=== PATIENT | female | born 1985 | race Caucasian/White ===

== ENCOUNTER 2021-03-04 13:09 | Inpatient (IN) | payer MEDICAID, SELFPAY ==
[~2021-03-04] VITALS: Ht 160 cm; Wt 119.7 kg
[2021-03-04 13:19] VITALS: BP_SYST 137
--- NOTE | 2021-03-04 13:19 | NUR ---
Patient to ER bed 4 to gown for evaluation. Side rails up.
--- NOTE | 2021-03-04 13:20 | NUR ---
Pt walked in to ER with c/o left breast bump and pain 07/05 x1 week. Reports going to urgent care today and being sent here. V/S stable, pt denies any fevers.
--- NOTE | 2021-03-04 13:25 | NUR ---
ER Dr. Nevarez at bedside examining patient.
[2021-03-04] MEDS ORDERED: ONDANSETRON HCL 4 MG/2 ML VIAL IVP ONE ×2 (13:30→20:50)
[2021-03-04] MEDS ORDERED: PIPERACILLIN/TAZO 3.375 GM in NS 50 ML IV ONE (13:30)
[2021-03-04] MEDS ORDERED: MORPHINE 4 MG INJ. 4 MG/ML VIAL IVP ONE (13:30)
[2021-03-04] MEDS ORDERED: NACL 0.9% 1,000 ML IV ONE (13:30)
[2021-03-04] MEDS ORDERED: PIPERACILLIN/TAZOBACTAM 3.375 GM/VIAL (ZOSYN) IV ONE (13:36)
--- NOTE | 2021-03-04 13:45 | NUR ---
# 20 gauge angiocath placed to RFA. Use of asceptic technique. Opsite placed over site. Blood return noted. Flushed with 10 cc of normal saline. No evidence of infiltration noted. Patient tolerated well.
--- NOTE | 2021-03-04 13:50 | NUR ---
Admit orders recevied from Dr. Urban, pt to go to med-surg. Covid results pending for bed placement.
--- NOTE | 2021-03-04 14:32 | NUR ---
Radiology at bedside for breast ultra sound.
[2021-03-04 14:37] LABS: BASOPHILS % (AUTO) 0.4 % (0.0-2.0); EOSINOPHILS # (AUTO) 0.1 K/uL (0.0-0.4); EOSINOPHILS % (AUTO) 1.6 % (0.0-4.0); HEMATOCRIT 33.5 % (36-48); HEMOGLOBIN 10.6 g/dL (12.0-16.0); LYMPHOCYTES # (AUTO) 2.3 K/uL (1.0-5.5); MEAN CORPUSCULAR HEMOGLOBIN 22 pg (27-31); MEAN CORPUSCULAR HGB CONC 32 % (32-36); MEAN CORPUSCULAR VOLUME 70 fL (79.0-98.0); MONOCYTES # (AUTO) 0.5 K/uL (0.0-1.0); MONOCYTES % (AUTO) 6.5 % (1.7-9.3); NEUTROPHILS # (AUTO) 5.3 K/uL (1.8-7.7); NEUTROPHILS % (AUTO) 63.5 % (40.0-70.0); PLATELET COUNT (AUTO) 381 K/uL (130-430); RED BLOOD CELL COUNT(AUTO) 4.78 MIL/uL (4.2-6.2); RED CELL DISTRIBUTION WIDTH 16.7 % (9.0-15.0); WHITE BLOOD COUNT (AUTO) 8.3 K/uL (4.8-10.8)
[2021-03-04] MEDS ORDERED: ONDANSETRON HCL 4 MG/2 ML VIAL IVP PRN (14:45)
[2021-03-04] MEDS ORDERED: MORPHINE 2 MG/ML INJ. SYRINGE IVP PRN (14:45)
[2021-03-04] MEDS ORDERED: ACETAMINOPHEN 325 MG TABLET PO PRN (14:45)
[2021-03-04] MEDS ORDERED: METOCLOPRAMIDE HCL 10 MG/2 ML VIAL IVP PRN (14:45)
[2021-03-04 14:46] LABS: CALCIUM 8.8 mg/dL (8.4-11.0); CREATININE 0.66 mg/dL (0.55-1.30); POTASSIUM 3.6 mmol/L (3.5-5.1)
[2021-03-04] MEDS ORDERED: HYDR25TA4 PO (14:50)
[2021-03-04 14:52] LABS: ALBUMIN 3.4 g/dL (3.4-4.8); TOTAL BILIRUBIN 0.3 mg/dL (0.0-1.0)
--- NOTE | 2021-03-04 15:00 | NUR ---
Med rec and belongings list completed. Code status placed on chart. notified of pt's admission
--- NOTE | 2021-03-04 16:38 | NUR ---
Patient will be admitted to care of Dr. Urban. Admitted to med-surg unit. Will go to room 102B. Belongings list completed. Complete and up to date summary report printed. SBAR report to be given at bedside with opportunity for questions.
[2021-03-04 16:46] VITALS: BP_SYST 143
--- NOTE | 2021-03-04 16:46 | NUR ---
ADMISSION NOTE Received patient from ER via efraín, received report from Britta MINOR. Patient admitted with diagnosis of Left Breast Abscess. Patient oriented to hospital routine, call light, toileting and safety-patient verbalized understanding.
--- NOTE | 2021-03-04 17:19 | NUR ---
CONSULT SURGERY LEFT BREAST ABSCESS DR TELLEZ [phone] S/W BRENNEN EXCHANGE
--- NOTE | 2021-03-04 17:39 | NUR ---
Paged Dr. Curry COTO had called to see if patient had eaten dinner yet, she has not started dinner yet, the patient has not eaten since last night - calling Dr. Zapien back to inform him - also informed the patient to not eat yet per Surgeon, patient verbalized understanding.
[2021-03-04] MEDS: PIPERACILLIN/TAZO 3.375/DEX-IS 50 ML IV SCH ×3 (18:04→23:33)
--- NOTE | 2021-03-04 18:38 | NUR ---
Dr. Zapien rounds informed consent for left breast Incision and drainage - answered the patient's questions about the procedure tonight - will follow up with consent and surgery prep.
[2021-03-04] MEDS ORDERED: VANCOMYCIN HCL 1,250 MG in NS 250 ML IV SCH (19:00)
--- NOTE | 2021-03-04 19:29 | NUR ---
Closing note patient prepared for surgery - made NOC shift nurse aware that MRSA screen for pre-op and UA and urine HCG still need to be collected - otherwise all other needs met for the patient, report given to Dallas MINOR.
[2021-03-04 20:00] VITALS: BP_SYST 120
--- NOTE | 2021-03-04 20:30 | NUR ---
RECEIVED BY OR Patient received by OR at this time via bed.
[2021-03-04 20:46] LABS: BILIRUBIN,URINE NEGATIVE (NEGATIVE); BLOOD, URINE 3+ (NEGATIVE); COLOR,URINE RED (YELLOW); GLUCOSE,URINE NEGATIVE (NEGATIVE); HCG,QUAL RESULT NEGATIVE (NEGATIVE); KETONES,URINE TRACE (NEGATIVE); LEUKOCYTE ESTERASE ,URINE 1+ (NEGATIVE); NITRITE, URINE POSITIVE (NEGATIVE); PH,URINE 5.5 (5.0-8.0); PROTEIN URINE 3+ (NEGATIVE)
[2021-03-04] MEDS ORDERED: SEVOFLURANE 15 MIN GAS INH ONE (20:50)
[2021-03-04] MEDS ORDERED: SUCCINYLCHOLINE CHLORIDE 20 MG/ML(QUELICIN) IVP ONE (20:50)
[2021-03-04] MEDS ORDERED: DEXAMETHASONE SOD PHOSPHATE 4 MG/ML VIAL IVP ONE (20:50)
[2021-03-04] MEDS ORDERED: BUPIVACAINE /PF 0.25% 30 ML VIAL INJ ONE (20:50)
[2021-03-04] MEDS ORDERED: PROPOFOL 200MG/ 20ML VIAL (DIPRIVAN) IV ONE (20:50)
[2021-03-04] MEDS ORDERED: METOCLOPRAMIDE HCL 10 MG/2 ML VIAL IVP ONE (20:50)
[2021-03-04] MEDS ORDERED: KETOROLAC TROMETHAMINE 30 MG VIAL IVP ONE (20:50)
[2021-03-04] MEDS ORDERED: NS IRRIG SOLN 1000 ML IR ONE (20:50)
[2021-03-04] MEDS ORDERED: LR 1,000 ML IV.SOLN IV ONE (20:50)
[2021-03-04] MEDS ORDERED: MIDAZOLAM HCL 5 MG/5 ML VIAL IVP ONE (20:50)
[2021-03-04] MEDS ORDERED: fentaNYL CITRATE/PF 100 MCG/2 ML AMP IVP ONE (20:50)
[2021-03-04 21:06] LABS: CLARITY/URINE BLOODY (CLEAR)
[2021-03-04 21:18] LABS: BACTERIA,URINE None Seen /HPF (None Seen); RBC,URINE >100 /HPF (0-3); TRICHOMONAS,URINE None Seen /HPF (None Seen); YEAST,URINE None Seen /HPF (None Seen)
[2021-03-04] MEDS ORDERED: MEPERIDINE HCL/PF 25 MG/ML DISP.SYRIN IVP PRN (22:15)
[2021-03-04] MEDS ORDERED: HYDROmorphone 2 MG/ML VIAL IVP PRN ×2 (22:15)
[2021-03-04] MEDS ORDERED: ePHEDrine sulfate 50 MG/ML VIAL IVP PRN (22:15)
[2021-03-04] MEDS ORDERED: LR 1,000 ML IV SCH (22:15)
[2021-03-04] MEDS ORDERED: NALOXONE HCL 0.4 MG/ML AMP (NARCAN) IVP PRN (22:15)
[2021-03-04] MEDS ORDERED: HYDROmorphone 1 MG/ML INJ. CARTRIDGE IVP PRN (22:15)
[2021-03-04] MEDS ORDERED: MIDAZOLAM HCL 5 MG/5 ML VIAL IVP PRN (22:15)
--- NOTE | 2021-03-04 23:10 | NUR ---
PATIENT BACK FROM OR/ 1900 VANCOMYCIN ADMINISTERED Patient arrived back from OR at this time. Patient resting in bed - no s/s pain or distress noted. Respirations even and unlabored - head of bed elevated. IV site patent - no s/s redness, infection, or infiltration. Bed locked and in lowest position. Call light within reach. OR administered Vancomycin due at 1900.
[2021-03-05] VITALS: BP_SYST 122
[2021-03-05] MEDS: PIPERACILLIN/TAZO 3.375/DEX-IS 50 ML IV SCH ×4 (05:06→23:02)
--- NOTE | 2021-03-05 06:30 | NUR ---
CLOSING NOTES Patient resting in bed - no s/s pain or distress noted. Respirations even and unlabored - head of bed elevated. IV site patent - no s/s redness, infection, or infiltration. Bed locked and in lowest position. Call light within reach.
--- NOTE | 2021-03-05 08:00 | NUR ---
OPENING NOTES PATIENT AAOX 4. RESPIRATION EVEN AND UNLABORED. ABDOMEN SOFT AND NON DISTENDED. OBESE. HAS IV ACCESS ON THE LEFT FOREARM #22. WITH LR 100CC/HR INFUSING ON WELL. HAS DRESSING ON THE LEFT BREAST DRY/INTACT. NO BLEEDING NOTED.
[2021-03-05 08:13] VITALS: BP_SYST 122
[2021-03-05] MEDS ORDERED: HYDROCHLOROTHIAZIDE 25 MG TABLET (HCTZ) PO ONE (10:00)
--- NOTE | 2021-03-05 10:24 | NUR ---
SS notes: FAMILY AND CONSUMER EDUCATION TEACHER met with patient at bedside. Pt is alert and oriented x4. Pt stated she had a "dime sized cyst last year" but started having pain on her breast last week,prompting her to bring self to the [facility] and was referred to ED. Pt is independent with her ADL's and does not use any DME. Pt states she has history of anxiety and panic attacks but denies any history of substance use. When discharged, her Rick will be picking her up.
[2021-03-05 11:32] VITALS: BP_SYST 134
[2021-03-05] MEDS: VANCOMYCIN HCL 1,250 MG in NS 250 ML IV SCH ×2 (11:52→23:02)
[2021-03-05] MEDS: MORPHINE 4 MG INJ. 4 MG/ML VIAL IVP PRN ×2 (12:09→20:23)
--- NOTE | 2021-03-05 13:48 | NUR ---
Dietitian Recommendations *Recommend: continue regular diet. *Recommend: Elías BID. Please see Nutritional Assessment for details RAE, RD
--- NOTE | 2021-03-05 15:00 | NUR ---
DR TELLEZ CAME AND SEE THE PATIENT.
--- NOTE | 2021-03-05 15:11 | NUR ---
Patient accepted by [facility] [phone], for wound care and dressing changes. Patient has been contacted by [facility]-discharge disposition will be .
[2021-03-05 15:17] VITALS: BP_SYST 96
--- NOTE | 2021-03-05 19:15 | NUR ---
Patient resting in bed - no s/s pain or distress noted. Respirations even and unlabored - head of bed elevated. IV site patent - no s/s redness, infection, o r infiltration. Bed locked and in lowest position. Call light within reach. Addendum: 03/06/21 at 0036 by Dallas Nagy RN OPENING NOTES Patient resting in bed - no s/s pain or distress noted. Respirations even and unlabored - head of bed elevated. IV site patent - no s/s redness, infection, o r infiltration. Bed locked and in lowest position. Call light within reach.
[2021-03-06] MEDS: MORPHINE 4 MG INJ. 4 MG/ML VIAL IVP PRN ×2 (00:31→09:50)
[2021-03-06 01:01] VITALS: BP_SYST 111
[2021-03-06] MEDS: PIPERACILLIN/TAZO 3.375/DEX-IS 50 ML IV SCH ×4 (05:27→23:15)
--- NOTE | 2021-03-06 06:44 | NUR ---
CLOSING NOTES Patient resting in bed - no s/s pain or distress noted. respirations even and unlabored - head of bed elevated. IV site patent - no s/s redness, infection, or infiltration. Bed locked and in lowest position. Call light within reach - bed alarm on. Addendum: 03/06/21 at 0645 by Dallas Nagy RN CLOSING NOTES AMENDMENT - Bed alarm not on - patient is fully ambulatory.
--- NOTE | 2021-03-06 07:48 | NUR ---
opening notes patient aaox 4. respiration even and unlabored. abdomen soft and non distended. has iv access on the rt forearm #22. saline lock. bed low position, alarmed and locked. ambulatory.
[2021-03-06 09:06] VITALS: BP_SYST 126
[2021-03-06] MEDS: HYDROCHLOROTHIAZIDE 25 MG TABLET (HCTZ) PO SCH (09:17)
--- NOTE | 2021-03-06 09:51 | NUR ---
PAIN MED MORPHINE 4 MG IV
[2021-03-06 12:04] VITALS: BP_SYST 107
[2021-03-06] MEDS: VANCOMYCIN HCL 1,250 MG in NS 250 ML IV SCH (12:21)
[2021-03-06] MEDS: HYDROcodone/ACETAMIN 5-325 MG TAB (NORCO/ VICODIN) PO PRN ×2 (12:27→20:07)
[2021-03-06 16:03] VITALS: BP_SYST 124
[2021-03-06 20:00] VITALS: BP_SYST 126
--- NOTE | 2021-03-06 21:07 | NUR ---
DR. TELLEZ AT BEDSIDE EXAMINING PATIENT I CHAPERONED FOR
[2021-03-06 23:59] VITALS: BP_SYST 129
[2021-03-07] MEDS: VANCOMYCIN HCL 1,250 MG in NS 250 ML IV SCH ×2 (00:21→14:40)
[2021-03-07] MEDS: MORPHINE 4 MG INJ. 4 MG/ML VIAL IVP PRN ×2 (00:34→09:01)
--- NOTE | 2021-03-07 00:49 | NUR ---
WOUND CARE DONE FOR RIGHT BREAST REMOVED DRESSING AND IODOFORM DRESSING, PT IN SEVERE PAIN 10/10 AND UNABLE TO TOLERATE. STOPPED WOUND CARE AND MEDICATED PATIENT WITH PRN MORPHINE. AFTER ADMINISTERING MEDICATION, CONTINUED WITH DRESSING. CLEANSED WITH AND REPACKED WITH IODOFORM DRESSING, COVERED WITH STERILE GAUZE, AND OPTIFOAM DRESSING. PT CONTINUED TO EXPRESS DISCOMFORT BUT WAS ABLE TO TOLERATE WOUND CARE. EDUCATED PATIENT ABOUT THE EFFECTS OF MORPHINE AND ADVISED PT TO USE CALL LIGHT FOR ASSISTANCE IF SHE NEEDS TO USE THE BATHROOM. SHE VERBALIZED UNDERSTANDING. PT IS RESTING IN BED. ENSURED ALL SAFETY PRECAUTIONS.
--- NOTE | 2021-03-07 01:30 | NUR ---
REPORT RECEIVED FROM NURSE ORONA FOR CONTINUATION OF PT'S NURSING CARE.
[2021-03-07] MEDS: PIPERACILLIN/TAZO 3.375/DEX-IS 50 ML IV SCH ×2 (06:03→13:11)
[2021-03-07] MEDS: HYDROcodone/ACETAMIN 5-325 MG TAB (NORCO/ VICODIN) PO PRN ×2 (06:27→14:42)
--- NOTE | 2021-03-07 06:57 | NUR ---
PT IS RESTING COMFORTABLY IN BED. ALL PT'S NEEDS WERE ATTENDED TO. WILL ENDORSE TO DAY SHIFT NURSE.
[2021-03-07 08:00] VITALS: BP_SYST 120
--- NOTE | 2021-03-07 08:10 | NUR ---
initial note am notes pt in bed. a/ox4. c/o pain, headache 03/04. last pain med was given at 0623. pain is managed. res even and unlabored.vitals stable. not in acute distress. iv rt forearm. #20. patent.flush well. no s/s of infiltration noted. safety/fall precautions in place. bed locked and in low position. call light within reach. encouraged pt to use call for help . . poc discussed with pt. verbalized understanding
[2021-03-07] MEDS: HYDROCHLOROTHIAZIDE 25 MG TABLET (HCTZ) PO SCH (08:51)
[2021-03-07] MEDS ORDERED: AMOX-426 PO (10:04)
[2021-03-07 11:07] LABS: ALBUMIN 3.1 g/dL (3.4-4.8); CALCIUM 8.8 mg/dL (8.4-11.0); CREATININE 0.84 mg/dL (0.55-1.30); POTASSIUM 3.6 mmol/L (3.5-5.1); TOTAL BILIRUBIN 0.4 mg/dL (0.0-1.0); VANCOMYCIN,TROUGH 13.6 ug/mL (5.0-10.0)
--- NOTE | 2021-03-07 12:00 | NUR ---
D/C PLANNING PATIENT IS GOING TO BE DISCHARGE HOME WITH HOME HEALTH. CALLED DISPLAY COORDINATOR TO CONFIRM HOME HEALTH ARRANGEMENT. INFORMED THE PATIENT ABOUT D/C PLAN.
[2021-03-07 12:07] VITALS: BP_SYST 146
--- NOTE | 2021-03-07 14:00 | NUR ---
ROUNDS PATIENT IS RESTING, ON ROOM AIR, BREATHING WELL, NO SIGN OF DISTRESS NOTED.IV INFUSING. ENCOURAGED PATIENT TO USE THE CALL LIGHT, SAFETY MAINTAINED.
[2021-03-07 14:14] VITALS: BP_SYST 120
--- NOTE | 2021-03-07 15:00 | NUR ---
WOUND CARE PREFORMED DRESSING CHANGING, CLEANED WITH NS, PACKED WITH IODOFORM PACKING, COVERED WITH GAZE AND OPTIFOAM DRESSING. MILD DRAINAGE NOTED. PATIENT TOLERATED WELL.
--- NOTE | 2021-03-07 15:55 | NUR ---
D/C Patient Patient given medication reconciliation form and D/C instructions. Exit Care provided. Patient verbalized understanding. MD discussed with patient the results and treatment provided. Ambulatory with steady gait for discharge to home. Patient in stable condition, ID band removed. IV catheter removed, intact and dressing applied, no active bleeding. Patient educated on pain management. All belongings sent with patient.pt left home in stable condition with in private car.
--- NOTE | 2021-03-07 18:22 | NUR ---
E PRESCRIPTION PT CALLED FROM HOME AND STATED THAT PT DID NOT GET HER PRESCRIPTION IN [facility] [place]. CALLED [facility] AND SPOKE TO ANJEL IN PHARMACY .HE SAID THEY DID NOT GET ANY E PRESCRIPTION . CALLED DR LEAHY . DR LEAHY CALLED BACK INFORMED THAT [facility] IN [place] DID NOT RECEIVE ANY PRESCRIPTION FROM HIM. DR LEAHY SAID HE WILL RESEND E PRESCRIPTION AGAIN. CALLED PT AND NOTIFIED THAT DR LEAHY WILL RE SEND E PRESCRIPTION.ASKED PT TO CALL BACK HOSPITAL IF SHE DOES NOT RECEIVE PRESCRIPTION
--- NOTE | 2021-03-07 19:00 | NUR ---
PATIENT CALLED AND ASKING IF DOCTOR CAN SENT THE PRESCRIPTION TO [facility]. [phone] CALLED [address] MOSER TO NOTIFY. NOTIFIED TECHNICAL MAINTENANCE SPECIALIST CHARGE NURSE SHERLY, AND TO FOLLOW UP Addendum: 03/07/21 at 1947 by Kerri Merino RN CALLED THE PATIENT AND INFORMED HER TO FOLLOW UP WITH DOCTOR'S OFFICE TOMORROW FOR ANTIBIOTIC. PATIENT STATED UNDERSTANDING AND WILL CALL DOCTOR'S OFFICE IN THE MORNING FOR ANTIBIOTICS
--- NOTE | 2021-03-07 20:30 | NUR ---
Dr. Zapien returned page from [facility]. Informed Dr. Zapien prescription for Augmentin sent by Dr. Urban was not received by [facility] and was already closed per patient. Asked Dr. Zapien if he could send prescription to [facility] in [place] as per patient's request. Dr. Zapien looked up pharmacy up by phone number and said he found it and will send prescription himself. Called patient at and informed Dr. Zapien will send prescription to [facility] per her request.
--- NOTE | 2021-03-08 08:02 | NUR ---
Late entry:Zosyn IVPB started 03/04/21 at 14:25, ended at 14:55.
[2021-03-08] MEDS ORDERED: IBUP-1969 PO (19:27)
== END 2021-03-07 15:55 | disposition home health service (06) | DRG 385 ==
LOC: SED 13:09 → SMU 14:03
PROVIDERS: ADMIT Internal Medicine Hospice and Palliative Medicine; ATTEND Internal Medicine Hospice and Palliative Medicine
PROC: 0JB60ZZ Excision of Chest Subcutaneous Tissue and Fascia, Open Approach (ICD-10-PCS; principal; 2021-03-04 21:00)
DX: N61.1 Abscess of the breast and nipple (principal); R65.10 Systemic inflammatory response syndrome (SIRS) of non-infectious origin without acute organ dysfunction; I10 Essential (primary) hypertension; Z20.822 Contact with and (suspected) exposure to COVID-19; Z98.891 History of uterine scar from previous surgery; Z79.899 Other long term (current) drug therapy; Z87.81 Personal history of (healed) traumatic fracture
CPT/HCPCS: 36415; 76642; 80053; 80202; 81000; 83605; 84703; 85025; 87040-TC; 87070-TC; 87075-TC; 87081; 88305; 88307; 96361; 96365; 96375; 99285; J0330; J1100; J1885; J2250; J2270; J2405; J2543; J2704; J2765; J3010; J3370; J3490; J7050; J7120

== ENCOUNTER 2021-03-08 17:22 | Emergency (ER) | payer MEDICAID, SELFPAY ==
[~2021-03-08] VITALS: Ht 160 cm; Wt 120.7 kg
[2021-03-08 17:22] VITALS: BP_SYST 161
[~2021-03-08 17:22] MED LIST: AMOX-426 PO; HYDR25TA4 PO
[2021-03-08] MEDS ORDERED: IBUP-1969 PO (19:27)
[2021-03-08] MEDS ORDERED: traMADol HCL HCL 50 MG TABLET (ULTRAM) PO ONE (19:30)
[2021-03-08] MEDS ORDERED: IBUPROFEN 600 MG TABLET PO ONE (19:30)
[2021-03-08] MEDS ORDERED: ONDANSETRON 4 MG ODT TAB PO ONE (19:30)
[2021-03-08 19:37] VITALS: BP_SYST 161
== END 2021-03-08 19:37 | disposition home or self-care (01) ==
LOC: SED 17:22
DX: Z48.00 Encounter for change or removal of nonsurgical wound dressing (principal); I10 Essential (primary) hypertension; Z79.899 Other long term (current) drug therapy
CPT/HCPCS: 81025; 99284; Q0162